=== PATIENT | male | born 1970 | race Caucasian/White ===

== ENCOUNTER 2017-07-12 13:45 | Outpatient (RCR) | payer MEDICARE, MEDICAID ==
[~2017-07-12] VITALS: Ht 147.3 cm; Wt 52.2 kg
[2017-07-12 15:22] VITALS: BP 142/97; PULSE 58; TEMP 98
== END 2017-07-13 15:39 ==
LOC: EUO 13:45
DX: N18.9 Chronic kidney disease, unspecified (principal); D63.1 Anemia in chronic kidney disease
CPT/HCPCS: J2916

== ENCOUNTER → 2017-07-12 | Emergency (ER) | payer MEDICARE, MEDICAID ==
[~2017-07-12] VITALS: Ht 147.3 cm; Wt 52.3 kg
[~2017-07-12] MED LIST: ACTOS 45MG45 MG/TAB PO; AMARYL4 MG PO; CELEXA40 MG PO; CELLCEPT 5500 MG/TAB PO; CYCLOSPORINE25 MG PO; FOLIC ACID 40400 MCG PO; JANUVIA50 MG PO; LANTUS SOLOS100 U/ML SC; LOPRESSOR 225 MG/TAB PO; NOVOLOG FLEX100 U/ML SC; PRILOSEC 20MG20 MG PO; RESTORIL 1515 MG/CAP PO; VITAMIN D 400400 IU PO; ZETIA 10MG TAB10 MG PO
[2017-07-12 17:35] VITALS: BP 125/84; PULSE 81
[2017-07-12 18:30] VITALS: TEMP 96.9
[2017-07-12 18:45] LABS: BASO # 0.1 (0.0-0.2); BASO % 0.7 % (0.0-2.0); EOS # 0.2 (0.0-0.7); EOS % 1.8 % (0-4.0); GRAN # 10.1 (1.4-6.5); GRAN % 79.7 % (42.2-75.2); HEMATOCRIT 51.9 % (42.0-52.0); HEMOGLOBIN 16.3 g/dl (13.5-18.0); LYMPH # 1.3 (1.2-3.4); LYMPH % 10.5 % (20.0-51.0); MEAN CELL VOLUME 92 fl (80.0-100.0); MEAN CORPUSCULAR HEMOGLOBIN 29 pg (27.0-31.0); MEAN CORPUSCULAR HGB CONC 31 g/dl (33.0-37.0); MEAN PLATELET VOLUME 11.5 fl (7.4-10.4); MONO # 0.9 (0.1-0.6); MONO % 6.7 % (1.7-9.3); PLATELET COUNT 256 K/mm3 (130-400); RED BLOOD COUNT 5.65 M/mm3 (4.20-5.60); REDCELL DISTRIBUTION WIDTH-CV 16.2 % (11.5-14.5); WHITE BLOOD COUNT 12.7 K/mm3 (4.8-10.8)
[2017-07-12 18:59] LABS: ADJUSTED CALCIUM 9.5 mg/dL (8.4-10.2); ALANINE AMINOTRANSFERASE 22 U/L (21-72); ALBUMIN 4.3 gm/dL (3.5-5.0); ALKALINE PHOSPHATASE 130 U/L (50-136); ANION GAP 13 mmol/L (7-16); BILIRUBIN,TOTAL 0.6 mg/dL (0.0-1.0); BLOOD UREA NITROGEN 49 mg/dL (9-20); C-REACTIVE PROTEIN 1.2 mg/dL (0.0-0.9); CALCIUM 9.7 mg/dL (8.4-10.2); CARBON DIOXIDE 19 mmol/L (22-30); CHLORIDE 104 mmol/L (98-107); GLUCOSE 263 mg/dL (74-106); LIPASE 290 U/L (23-300); SODIUM 135 mmol/L (137-145); TOTAL PROTEIN 7.4 gm/dL (6.4-8.2)
[2017-07-12 19:02] LABS: POTASSIUM 6.2 mmol/L (3.4-5.0)
[2017-07-12 19:08] LABS: B-TYPE NATRIURETIC PEPTIDE 761 pg/mL (0-125)
[2017-07-12 19:11] LABS: TROPONIN-I < 0.012 ng/mL (0.000-0.034)
[2017-07-12 21:34] LABS: CALCIUM 10.5 mg/dL (8.4-10.2); CREATININE, serum 1.9 mg/dL (0.66-1.25); POTASSIUM 5.3 mmol/L (3.4-5.0)
== END ==
LOC: COL.ER 17:32
PROVIDERS: Emergency Medicine
DX: E87.5 Hyperkalemia (principal); M54.6 Pain in thoracic spine; E11.22 Type 2 diabetes mellitus with diabetic chronic kidney disease; I12.0 Hypertensive chronic kidney disease with stage 5 chronic kidney disease or end stage renal disease; N18.6 End stage renal disease; T45.4X5A Adverse effect of iron and its compounds, initial encounter; Z99.2 Dependence on renal dialysis; Z94.0 Kidney transplant status
CPT/HCPCS: J1170; J1200; J1815; J2405; J2930; J7030

== ENCOUNTER → 2018-01-25 | Outpatient (CLI) | payer MEDICARE, MEDICAID | LOC: COL.VAS 01-22 13:15 | DX: R60.0 Localized edema (principal); R07.9 Chest pain, unspecified; I10 Essential (primary) hypertension; I27.20 Pulmonary hypertension, unspecified; I34.0 Nonrheumatic mitral (valve) insufficiency ==

== ENCOUNTER 2018-10-09 14:40 | Inpatient (IN) | payer MEDICARE, MEDICAID ==
[~2018-10-09] VITALS: Ht 147.3 cm; Wt 47.1 kg
[2018-10-09] VITALS (98 sets, daily range): BP systolic 76–92; BP diastolic 56–71; PULSE 86–95; TEMP 96; O2SAT 67–100
[~2018-10-09 14:40] MED LIST changes: +CYCLOSPORINE25 M2 PO; -CYCLOSPORINE25 MG PO; -VITAMIN D 400400 IU PO; +VITAMIND3 5000
[2018-10-09 15:09] LABS: BASO % 0.3 % (0.0-2.0); EOS % 0.2 % (0-4.0); GRAN # 9.7 (1.4-6.5); GRAN % 87.3 % (42.2-75.2); HEMATOCRIT 44.5 % (42.0-52.0); HEMOGLOBIN 14.5 g/dl (13.5-18.0); LYMPH # 0.6 (1.2-3.4); LYMPH % 5.2 % (20.0-51.0); MEAN CELL VOLUME 93 fl (80.0-100.0); MEAN CORPUSCULAR HEMOGLOBIN 30 pg (27.0-31.0); MEAN CORPUSCULAR HGB CONC 33 g/dl (33.0-37.0); MEAN PLATELET VOLUME 12.3 fl (7.4-10.4); MONO # 0.8 (0.1-0.6); MONO % 6.7 % (1.7-9.3); PLATELET COUNT 262 K/mm3 (130-400); RED BLOOD COUNT 4.81 M/mm3 (4.20-5.60); REDCELL DISTRIBUTION WIDTH-CV 13.4 % (11.5-14.5)
[2018-10-09 15:22] LABS: ALANINE AMINOTRANSFERASE 23 U/L (21-72); ALBUMIN 3.7 gm/dL (3.5-5.0); ALKALINE PHOSPHATASE 121 U/L (50-136); ANION GAP 15 mmol/L (7-16); AST,SGOT 24 U/L (15-37); BLOOD UREA NITROGEN 51 mg/dL (9-20); CALCIUM 8.8 mg/dL (8.4-10.2); CARBON DIOXIDE 18 mmol/L (22-30); CREATININE, serum 1.85 mg/dL (0.66-1.25); MAGNESIUM 1.9 mg/dL (1.6-2.3); POTASSIUM 5.5 mmol/L (3.4-5.0); SODIUM 120 mmol/L (137-145); TOTAL PROTEIN 6.2 gm/dL (6.4-8.2)
[2018-10-09 15:32] LABS: ACETONE,SERUM SMALL
[2018-10-09 15:45] LABS: CHLORIDE 87 mmol/L (98-107); GLUCOSE 1243 mg/dL (74-106)
[2018-10-09 17:40] LABS: COLLECTION METHOD CLEAN CATCH
[2018-10-09 17:49] LABS: MUCOUS Present /lpf; PH 6 (5-8); SQUAMOUS EPITHELIAL None Seen /hpf; URINE APPEARANCE Clear; URINE BACTERIA None Seen /hpf; URINE BILIRUBIN Negative (NEGATIVE); URINE BLOOD Negative (NEGATIVE); URINE COLOR Straw; URINE GLUCOSE 3+ (NEGATIVE); URINE KETONE Trace (NEGATIVE); URINE LEUKOCYTE ESTERASE Negative (NEGATIVE); URINE NITRATE Negative (NEGATIVE); URINE PROTEIN(semi-quant) Negative (NEGATIVE); URINE RBC None Seen /hpf; URINE UROBILINOGEN Negative (NEGATIVE)
[2018-10-09 18:00] LABS: CALCIUM 8.8 mg/dL (8.4-10.2); CREATININE, serum 1.87 mg/dL (0.66-1.25); PHOSPHOROUS 1.6 mg/dL (2.5-4.5); POTASSIUM 3.8 mmol/L (3.4-5.0)
[2018-10-09] MEDS ORDERED: PRINIVIL20 MG PO (19:16)
[2018-10-09] MEDS ORDERED: RYTARY1 CE2 PO (19:16)
[2018-10-09] MEDS ORDERED: REQUIP 1MG T1 MG/TAB PO (19:17)
[2018-10-09] MEDS ORDERED: LEVOXYL0.025 MG PO (19:18)
[2018-10-09] MEDS ORDERED: BASAGLAR K100 UNIT/1 SQ (19:18)
[2018-10-09] MEDS ORDERED: ARICEPT 5MG PO (19:19)
[2018-10-09] MEDS ORDERED: ZOLOFT 25MG25 MG PO (19:19)
[2018-10-09 19:20] LABS: GASTROCCULT NEGATIVE; pH GASTRIC CONTENTS 3
[2018-10-09] MEDS ORDERED: TRULICITY0.75 MG/0. SQ (19:20)
[2018-10-09 20:06] LABS: ARTERIAL BLD GAS O2 SATURATION 97.9 % (92-100); ARTERIAL BLD GAS TCO2 CT 13.3; ARTERIAL BLOOD GAS BASE EXCESS -11.3 (-2-2); ARTERIAL BLOOD GAS HCO3 12.6 meq/L (22-26); ARTERIAL BLOOD GAS PCO2 24.1 mmHg (35-45); ARTERIAL BLOOD GAS pH 7.34 (7.35-7.45)
[2018-10-09 20:07] LABS: ARTERIAL BLOOD GAS PO2 121.5 mmHg (80-100)
[2018-10-09 20:09] LABS: CALCIUM 8.1 mg/dL (8.4-10.2); CREATININE, serum 1.86 mg/dL (0.66-1.25); MAGNESIUM 1.9 mg/dL (1.6-2.3); POTASSIUM 3.3 mmol/L (3.4-5.0)
[2018-10-09 23:20] LABS: CREATININE, serum 1.7 mg/dL (0.66-1.25); POTASSIUM 3.9 mmol/L (3.4-5.0)
[2018-10-10] VITALS (431 sets, daily range): BP systolic 94–127; BP diastolic 68–96; PULSE 72–102; TEMP 97.8–98.7; O2SAT 72–100
[2018-10-10 01:18] LABS: CALCIUM 7.4 mg/dL (8.4-10.2); CREATININE, serum 1.57 mg/dL (0.66-1.25); POTASSIUM 4.4 mmol/L (3.4-5.0)
[2018-10-10 03:02] LABS: CALCIUM 7.4 mg/dL (8.4-10.2); CREATININE, serum 1.59 mg/dL (0.66-1.25); POTASSIUM 4.6 mmol/L (3.4-5.0)
[2018-10-10 04:55] LABS: CALCIUM 7.4 mg/dL (8.4-10.2); CREATININE, serum 1.71 mg/dL (0.66-1.25); MAGNESIUM 2.2 mg/dL (1.6-2.3); POTASSIUM 4.8 mmol/L (3.4-5.0)
[2018-10-10 07:20] LABS: CALCIUM 7.9 mg/dL (8.4-10.2); CREATININE, serum 1.98 mg/dL (0.66-1.25)
[2018-10-10 08:40] LABS: BASO % 0.2 % (0.0-2.0); EOS % 0.1 % (0-4.0); GRAN # 13.1 (1.4-6.5); HEMOGLOBIN 12.7 g/dl (13.5-18.0); LYMPH # 0.8 (1.2-3.4); LYMPH % 4.9 % (20.0-51.0); MEAN CORPUSCULAR HEMOGLOBIN 30 pg (27.0-31.0); MEAN CORPUSCULAR HGB CONC 35 g/dl (33.0-37.0); MEAN PLATELET VOLUME 12.3 fl (7.4-10.4); MONO # 1.3 (0.1-0.6); MONO % 8.2 % (1.7-9.3); PLATELET COUNT 239 K/mm3 (130-400); RED BLOOD COUNT 4.21 M/mm3 (4.20-5.60)
[2018-10-10 08:42] LABS: HEMATOCRIT 36.7 % (42.0-52.0); MEAN CELL VOLUME 87 fl (80.0-100.0)
[2018-10-10 09:28] LABS: CALCIUM 7.9 mg/dL (8.4-10.2); CREATININE, serum 1.98 mg/dL (0.66-1.25); POTASSIUM 4.1 mmol/L (3.4-5.0)
[2018-10-10 11:37] LABS: CALCIUM 7.7 mg/dL (8.4-10.2); CREATININE, serum 1.98 mg/dL (0.66-1.25); POTASSIUM 4.4 mmol/L (3.4-5.0)
[2018-10-10 21:28] LABS: CALCIUM 7.5 mg/dL (8.4-10.2); CREATININE, serum 1.98 mg/dL (0.66-1.25); POTASSIUM 4.5 mmol/L (3.4-5.0)
[2018-10-11] VITALS (719 sets, daily range): BP systolic 90–149; BP diastolic 51–104; PULSE 70–97; TEMP 98.1–98.7; O2SAT 84–100
[2018-10-11 05:41] LABS: BASO % 0.2 % (0.0-2.0); EOS # 0.1 (0.0-0.7); EOS % 0.8 % (0-4.0); GRAN # 8.1 (1.4-6.5); GRAN % 78.8 % (42.2-75.2); LYMPH # 1.1 (1.2-3.4); LYMPH % 10.9 % (20.0-51.0); MEAN CELL VOLUME 91 fl (80.0-100.0); MEAN CORPUSCULAR HGB CONC 33 g/dl (33.0-37.0); MEAN PLATELET VOLUME 11.2 fl (7.4-10.4); MONO # 0.9 (0.1-0.6); MONO % 8.9 % (1.7-9.3); PLATELET COUNT 172 K/mm3 (130-400); RED BLOOD COUNT 3.52 M/mm3 (4.20-5.60); REDCELL DISTRIBUTION WIDTH-CV 13.5 % (11.5-14.5)
[2018-10-11 05:42] LABS: HEMATOCRIT 32.1 % (42.0-52.0); HEMOGLOBIN 10.7 g/dl (13.5-18.0); MEAN CORPUSCULAR HEMOGLOBIN 30 pg (27.0-31.0)
[2018-10-11 05:53] LABS: CALCIUM 7.4 mg/dL (8.4-10.2); CREATININE, serum 1.51 mg/dL (0.66-1.25)
[2018-10-12] VITALS (515 sets, daily range): BP systolic 138–156; BP diastolic 100–106; PULSE 78–88; TEMP 98.1; O2SAT 86–100
[2018-10-12 06:10] LABS: BASO % 0.3 % (0.0-2.0); EOS # 0.1 (0.0-0.7); EOS % 1.9 % (0-4.0); GRAN # 4.8 (1.4-6.5); GRAN % 69.2 % (42.2-75.2); HEMOGLOBIN 11.1 g/dl (13.5-18.0); LYMPH # 1.2 (1.2-3.4); LYMPH % 17.2 % (20.0-51.0); MEAN CELL VOLUME 92 fl (80.0-100.0); MEAN CORPUSCULAR HEMOGLOBIN 31 pg (27.0-31.0); MEAN CORPUSCULAR HGB CONC 33 g/dl (33.0-37.0); MEAN PLATELET VOLUME 11.4 fl (7.4-10.4); MONO # 0.8 (0.1-0.6); PLATELET COUNT 151 K/mm3 (130-400); RED BLOOD COUNT 3.63 M/mm3 (4.20-5.60); REDCELL DISTRIBUTION WIDTH-CV 13.6 % (11.5-14.5)
[2018-10-12 06:18] LABS: HEMATOCRIT 33.4 % (42.0-52.0)
[2018-10-12 06:27] LABS: CALCIUM 7.4 mg/dL (8.4-10.2); CREATININE, serum 1.1 mg/dL (0.66-1.25); POTASSIUM 3.7 mmol/L (3.4-5.0)
[2018-10-12] MEDS ORDERED: TOPROL XL 25MG25 MG PO (13:16)
[2018-10-12] MEDS ORDERED: PHOSPHA 250 NEU1 TAB PO (13:17)
[2018-10-12] MEDS ORDERED: BASAGLAR K100 UNIT/1 SQ (13:17)
[2018-10-12] MEDS ORDERED: NOVOLOG 100U100 U/M1 SQ (13:21)
== END 2018-10-12 14:25 | disposition swing bed (61) | DRG 638 ==
LOC: COL.ER 14:40 → ICU 15:59
PROVIDERS: Emergency Medicine; Hospitalist; Internal Medicine; Physician Assistant
PROC: 02HV33Z Insertion of Infusion Device into Superior Vena Cava, Percutaneous Approach (ICD-10-PCS; principal; 2018-10-11)
DX: E11.00 Type 2 diabetes mellitus with hyperosmolarity without nonketotic hyperglycemic-hyperosmolar coma (NKHHC) (principal); Z94.0 Kidney transplant status; E87.1 Hypo-osmolality and hyponatremia; E87.2 Acidosis; N17.9 Acute kidney failure, unspecified; N13.30 Unspecified hydronephrosis; Z79.4 Long term (current) use of insulin; Z91.14 Patient's other noncompliance with medication regimen; G20 Parkinson's disease; Z87.891 Personal history of nicotine dependence; I10 Essential (primary) hypertension; F03.90 Unspecified dementia, unspecified severity, without behavioral disturbance, psychotic disturbance, mood disturbance, and anxiety; F32.9 Major depressive disorder, single episode, unspecified; E83.39 Other disorders of phosphorus metabolism; R33.9 Retention of urine, unspecified; T38.3X1A Poisoning by insulin and oral hypoglycemic [antidiabetic] drugs, accidental (unintentional), initial encounter; Y92.238 Other place in hospital as the place of occurrence of the external cause; I95.9 Hypotension, unspecified; E87.6 Hypokalemia; E83.42 Hypomagnesemia
CPT/HCPCS: 99222-AI; 99232-AI; 99233-AI; 99239; J1644; J1815; J2405; J3475; J3480; J7030; J7070; J7515; J7517

== ENCOUNTER → 2020-11-26 | Outpatient (CLI) | payer MEDICARE, MEDICAID ==
[~2020-11-26] MED LIST changes: +ARICEPT 5MG PO; +BASAGLAR K100 UNIT/1 SQ; +LEVOXYL0.025 MG PO; +NOVOLOG 100U100 U/M1 SQ; +PHOSPHA 250 NEU1 TAB PO; +PRINIVIL20 MG PO; +REQUIP 1MG T1 MG/TAB PO; +RYTARY1 CE2 PO; +TOPROL XL 25MG25 MG PO; +TRULICITY0.75 MG/0. SQ; +ZOLOFT 25MG25 MG PO
[2020-11-26 09:39] LABS: ALBUMIN 4.1 gm/dL (3.5-5.0); BASO # 0.1 (0.0-0.2); BASO % 1.5 % (0.0-2.0); BILIRUBIN,TOTAL 0.4 mg/dL (0.0-1.0); CALCIUM 9.8 mg/dL (8.4-10.2); CHOLESTEROL RISK RATIO 2.8; CREATININE, serum 1.68 (0.66-1.25); EOS # 0.6 (0.0-0.7); EOS % 8.7 % (0-4.0); GRAN # 4.2 (1.4-6.5); GRAN % 61.5 % (42.2-75.2); LYMPH # 1.2 (1.2-3.4); LYMPH % 17.9 % (20.0-51.0); MEAN CELL VOLUME 79 fl (80.0-100.0); MEAN CORPUSCULAR HGB CONC 28 g/dl (33.0-37.0); MEAN PLATELET VOLUME 11.1 fl (7.4-10.4); MONO # 0.7 (0.1-0.6); MONO % 10.1 % (1.7-9.3); PLATELET COUNT 426 K/mm3 (130-400); RED BLOOD COUNT 3.79 M/mm3 (4.20-5.60); REDCELL DISTRIBUTION WIDTH-CV 17.2 % (11.5-14.5); TOTAL PROTEIN 6.7 gm/dL (6.4-8.2); URIC ACID 7.3 mg/dL (3.5-8.5)
[2020-11-26 09:41] LABS: HEMOGLOBIN 8.5 g/dl (13.5-18.0); MEAN CORPUSCULAR HEMOGLOBIN 22 pg (27.0-31.0)
== END ==
LOC: ZCOL.LAB 08:49
PROVIDERS: Internal Medicine Nephrology
DX: E11.21 Type 2 diabetes mellitus with diabetic nephropathy (principal); Z94.0 Kidney transplant status

== ENCOUNTER → 2020-12-10 | Outpatient (CLI) | payer MEDICARE, MEDICAID | LOC: ZCOL.LAB 09:11 | DX: E11.21 Type 2 diabetes mellitus with diabetic nephropathy (principal) ==

== ENCOUNTER 2021-02-25 16:41 | Inpatient (IN) | payer MEDICARE, MEDICAID ==
[~2021-02-25] VITALS: Ht 147.3 cm; Wt 63.6 kg
[2021-02-25 17:20] LABS: MEAN CELL VOLUME 79 fl (80.0-100.0); MEAN CORPUSCULAR HGB CONC 29 g/dl (33.0-37.0); MEAN PLATELET VOLUME 10.3 fl (7.4-10.4); PLATELET COUNT 332 K/mm3 (130-400); REDCELL DISTRIBUTION WIDTH-CV 16.2 % (11.5-14.5)
[2021-02-25 17:23] LABS: HEMOGLOBIN 8.6 g/dl (13.5-18.0); MEAN CORPUSCULAR HEMOGLOBIN 23 pg (27.0-31.0)
[2021-02-25 17:38] LABS: ALANINE AMINOTRANSFERASE 7 U/L (4-49); ALBUMIN 4.3 gm/dL (3.5-5.0); ALKALINE PHOSPHATASE 130 U/L (50-136); ANION GAP 12 mmol/L (7-16); AST,SGOT 16 U/L (15-37); BILIRUBIN,TOTAL 0.2 mg/dL (0.0-1.0); BLOOD UREA NITROGEN 51 mg/dL (9-20); CALCIUM 9.4 mg/dL (8.4-10.2); CARBON DIOXIDE 17 mmol/L (22-30); CHLORIDE 103 mmol/L (98-107); CREATININE, serum 1.62 (0.66-1.25); MAGNESIUM 2.1 mg/dL (1.6-2.3); SODIUM 133 mmol/L (137-145); TOTAL PROTEIN 7.2 gm/dL (6.4-8.2)
[2021-02-25 17:43] LABS: GLUCOSE 581 mg/dL (74-106)
[2021-02-25 17:44] LABS: POTASSIUM 6.9 mmol/L (3.4-5.0)
[2021-02-25 17:50] LABS: TROPONIN-I < 0.012 ng/mL (0.000-0.035)
[2021-02-25 18:54] LABS: EOSINOPHIL 1 % (0-4); LYMPHOCYTE 2 % (20.0-51.0); MICROCYTOSIS 1+; NEUTROPHILS 93 % (42.0-75.2)
[2021-02-25] MEDS ORDERED: TOPROL XL 50MG50 MG PO (21:01)
[2021-02-25] MEDS ORDERED: ASPIRIN E.C. 8181 MG PO (21:02)
[2021-02-25] MEDS ORDERED: CYCLOSPORINE25 M2 PO (21:02)
[2021-02-25] MEDS ORDERED: ARICEPT10 MG PO (21:04)
[2021-02-25] MEDS ORDERED: FLOMAX 0.40.4 MG/CAP PO (21:04)
[2021-02-25] MEDS ORDERED: ZOLOFT 100MG100 MG PO (21:05)
[2021-02-25] MEDS ORDERED: LASIX 20MG TABL20 MG PO (21:05)
[2021-02-25] MEDS ORDERED: RYTARY1 CE3 PO (21:06)
[2021-02-25 21:18] VITALS: BP 112/74; PULSE 103; TEMP 98.1
[2021-02-25 21:33] LABS: CALCIUM 9.7 mg/dL (8.4-10.2); CREATININE, serum 1.47 (0.66-1.25); POTASSIUM 5.6 mmol/L (3.4-5.0)
[2021-02-25 22:46] VITALS: BP 110/69; PULSE 79; TEMP 97.9
[2021-02-26] MEDS ORDERED: BASAGLAR K100 UNIT/1 SQ (00:23)
[2021-02-26] MEDS ORDERED: LIQUIFILM TEARS15 ML OU (00:25)
[2021-02-26] MEDS ORDERED: TYLENOL 500MG500 MG PO (00:27)
[2021-02-26] MEDS ORDERED: ANTACID500 M1 PO (00:32)
[2021-02-26] MEDS ORDERED: ANTI-DIARRHEAL2 MG PO (00:34)
--- NOTE | 2021-02-26 01:08 | NUR ---
Patient arrived to surgcal floor around 2119. Patient has police escort present. Alert and disoriented. Patient hard of hearing, but able to understand enough after a few times of repeating questions. Patient is cooperative, and taking medications per orders. Denies having pain and discomfort. Peripheral IV to left forearm with fluids running per orders. BS when arriving to unit was 115. Patient did eat, and BS around midnight was 337. Given sliding scale insulin per orders. Denies SOB and dyspnea. LS CTA. Respirations even and unlabored. HRR. Telemetry in place. Capillary refill less than 3 seconds. Non-tenting skin turgor. BSAx4. Abdomen soft and non-tender. No edema. Patient voices no questions, needs, or concerns at this time. Patient given Kayexelate per orders. Has gone to the bathroom twice since, but no BM at this time. No urine output for UA at this time. Does state that he does not make much urine anymore. Resting in bed with call light within reach.
[2021-02-26 02:32] LABS: CREATININE, serum 1.42 (0.66-1.25); POTASSIUM 4.6 mmol/L (3.4-5.0)
[2021-02-26 04:23] VITALS: BP 125/73; PULSE 87; TEMP 98.1
--- NOTE | 2021-02-26 06:08 | NUR ---
Patient's blood sugar 29. Hypoglycemic protocol implemented. Given D50W per orders.
--- NOTE | 2021-02-26 06:21 | NUR ---
Patient's blood sugar is now 208 fingerstick. Police escort remains in room. Patient denies having pain and discomfort.
[2021-02-26 07:12] LABS: MEAN CELL VOLUME 80 fl (80.0-100.0); MEAN CORPUSCULAR HGB CONC 29 g/dl (33.0-37.0); PLATELET COUNT 294 K/mm3 (130-400); RED BLOOD COUNT 3.17 M/mm3 (4.20-5.60); REDCELL DISTRIBUTION WIDTH-CV 16.1 % (11.5-14.5)
[2021-02-26 07:15] LABS: HEMATOCRIT 25.3 % (42.0-52.0); HEMOGLOBIN 7.3 g/dl (13.5-18.0); MEAN CORPUSCULAR HEMOGLOBIN 23 pg (27.0-31.0)
[2021-02-26 07:18] LABS: CALCIUM 8.6 mg/dL (8.4-10.2); CREATININE, serum 1.25 (0.66-1.25); POTASSIUM 4.6 mmol/L (3.4-5.0)
--- NOTE | 2021-02-26 07:50 | NUR ---
Lab called to report critical glucose of 31. Immediate finger stick glucose resulted in 127. Called lab to advise of discrepency. VS and telemetry are WNL. Patient continues to refuse to rouse, but snack offered and left at bedside, awaiting lab to advise or recheck.
[2021-02-26 08:24] VITALS: BP 121/83; PULSE 91; TEMP 98.4
--- NOTE | 2021-02-26 09:10 | NUR ---
Glucose recheck was consistant with earlier capillary check. Patient was up to bedside commode with student and is alert and oriented. Patient was able to take PO medications and is currently awaiting breakfast. VS and telemetry remain WNL.
--- NOTE | 2021-02-26 09:38 | NUR ---
Initial visit; Patient thanked Smoke Tester for looking in on him and offering God's blessings.
[2021-02-26 10:13] LABS: CALCIUM 8.6 mg/dL (8.4-10.2); CREATININE, serum 1.4 (0.66-1.25); POTASSIUM 4.7 mmol/L (3.4-5.0)
--- NOTE | 2021-02-26 12:50 | NUR ---
Discharge teaching completed by charge nurse. INT removed by student nurse. Patient confirmed all belongings were gathered, patient transferred to wheelchair and escorted out by [facility] officers.
--- NOTE | 2021-02-26 16:33 | NUR ---
Patient is an inmate at [facility] and will return there today upon discharge. SW was contacted by SUMEET Crow-Stave Log Ripsaw Operator at [facility]. Mignon advised patient sees Dr. Katerine Bhatti for primary care. Mignon advised that patient was living at [facility] but was kicked out after the incident he was arrested for. Mignon advised she has worked extensively with this patient as he has poor medical follow through. NO needs at this time.
== END 2021-02-26 12:50 | DRG 638 ==
LOC: COL.ER 16:41 → SURG 18:37
PROVIDERS: Emergency Medicine; Physician Assistant; Student in an Organized Health Care Education/Training Program; ADMIT Internal Medicine
DX: E11.65 Type 2 diabetes mellitus with hyperglycemia (principal); Z94.0 Kidney transplant status; E87.1 Hypo-osmolality and hyponatremia; E87.5 Hyperkalemia; E11.22 Type 2 diabetes mellitus with diabetic chronic kidney disease; N18.9 Chronic kidney disease, unspecified; I12.9 Hypertensive chronic kidney disease with stage 1 through stage 4 chronic kidney disease, or unspecified chronic kidney disease; G20 Parkinson's disease; F17.210 Nicotine dependence, cigarettes, uncomplicated; D63.1 Anemia in chronic kidney disease; D72.829 Elevated white blood cell count, unspecified; F03.90 Unspecified dementia, unspecified severity, without behavioral disturbance, psychotic disturbance, mood disturbance, and anxiety; E03.9 Hypothyroidism, unspecified; K21.9 Gastro-esophageal reflux disease without esophagitis; F32.9 Major depressive disorder, single episode, unspecified; N40.0 Benign prostatic hyperplasia without lower urinary tract symptoms; Z91.14 Patient's other noncompliance with medication regimen; Z79.82 Long term (current) use of aspirin; Z79.4 Long term (current) use of insulin
CPT/HCPCS: 99222-AI; 99223-AI; 99239; J0610; J1644; J1815; J7030; J7515; J7517

== ENCOUNTER 2021-03-27 08:10 | Inpatient (IN) | payer OTHER ==
[~2021-03-27] VITALS: Ht 152.4 cm; Wt 40.8 kg
[2021-03-27] VITALS (411 sets, daily range): BP systolic 91–135; BP diastolic 52–89; PULSE 75–103; TEMP 97.4–98; O2SAT 71–100
[~2021-03-27 08:10] MED LIST changes: +ANTACID500 M1 PO; +ANTI-DIARRHEAL2 MG PO; +ARICEPT10 MG PO; +ASPIRIN E.C. 8181 MG PO; +FLOMAX 0.40.4 MG/CAP PO; +LASIX 20MG TABL20 MG PO; +LIQUIFILM TEARS15 ML OU; +RYTARY1 CE3 PO; +TOPROL XL 50MG50 MG PO; +TYLENOL 500MG500 MG PO; +ZOLOFT 100MG100 MG PO
[2021-03-27 08:53] LABS: MEAN CELL VOLUME 85 fl (80.0-100.0); MEAN CORPUSCULAR HGB CONC 28 g/dl (33.0-37.0); MEAN PLATELET VOLUME 10.9 fl (7.4-10.4); PLATELET COUNT 331 K/mm3 (130-400); RED BLOOD COUNT 2.23 M/mm3 (4.20-5.60); REDCELL DISTRIBUTION WIDTH-CV 18.2 % (11.5-14.5)
[2021-03-27 09:01] LABS: HEMOGLOBIN 5.4 g/dl (13.5-18.0); MEAN CORPUSCULAR HEMOGLOBIN 24 pg (27.0-31.0)
[2021-03-27 09:03] LABS: ALBUMIN 3.3 gm/dL (3.5-5.0); BILIRUBIN,TOTAL 0.8 mg/dL (0.0-1.0); CALCIUM 8.9 mg/dL (8.4-10.2); CREATININE, serum 1.37 (0.66-1.25); TOTAL PROTEIN 5.6 gm/dL (6.4-8.2)
[2021-03-27 09:12] LABS: POTASSIUM 6.7 mmol/L (3.4-5.0)
[2021-03-27 09:53] LABS: ANISOCYTOSIS 3+; HYPERSEGMENTED POLYS PRESENT; HYPOCHROMIA 4+; LYMPHOCYTE 2 % (20.0-51.0); NEUTROPHILS 96 % (42.0-75.2); OVALOCYTES 1+; POIKILOCYTOSIS 1+
[2021-03-27 09:54] LABS: PLATELET ESTIMATE NORMAL (NORMAL)
--- NOTE | 2021-03-27 10:20 | NUR ---
PT ARRIVES TO ICU 1 VIA STRETCHER ON 3L VIA NC. REPORT RECEIVED FROM CHELSEA IN ER AT THIS TIME. PT DOES APPEAR TO BE AMS AND UNABLE TO ANSWER QUESTIONS BUT DOES OPEN EYES OCCASSIONALLY UPON REQUEST. CORRECTION STAFF MEMBER ACCOMPANY PT. PT PLACED ON BEDSIDE CONTINUOUS MONITOR. VSS.
[2021-03-27 10:41] LABS: COLLECTION METHOD CLEAN CATCH
[2021-03-27 10:50] LABS: PH 8 (5-8); SQUAMOUS EPITHELIAL None Seen /hpf; URINE APPEARANCE Clear; URINE BACTERIA None Seen /hpf; URINE BILIRUBIN Negative (NEGATIVE); URINE BLOOD Negative (NEGATIVE); URINE COLOR Yellow; URINE GLUCOSE 3+ (NEGATIVE); URINE KETONE Trace (NEGATIVE); URINE LEUKOCYTE ESTERASE Negative (NEGATIVE); URINE NITRATE Negative (NEGATIVE); URINE PROTEIN(semi-quant) Negative (NEGATIVE); URINE RBC 0-2 /hpf; URINE UROBILINOGEN Negative (NEGATIVE)
[2021-03-27 10:52] LABS: PROTHROMBIN TIME 11.6 SECONDS (9.7-12.8)
[2021-03-27 10:54] LABS: TRICYCLIC ANTIDEPRESS URINE NEGATIVE
[2021-03-27 10:56] LABS: MAGNESIUM 1.8 mg/dL (1.6-2.3); PHOSPHOROUS 3.6 mg/dL (2.5-4.5)
[2021-03-27 10:58] LABS: ARTERIAL BLD GAS O2 SATURATION 96.3 % (92-100); ARTERIAL BLD GAS TCO2 CT 20.7; ARTERIAL BLOOD GAS BASE EXCESS -4.1 (-2-2); ARTERIAL BLOOD GAS HCO3 19.8 meq/L (22-26); ARTERIAL BLOOD GAS PCO2 29.6 mmHg (35-45); ARTERIAL BLOOD GAS PO2 90.7 mmHg (80-100); ARTERIAL BLOOD GAS pH 7.44 (7.35-7.45)
[2021-03-27 11:08] LABS: TROPONIN-I 0.016 ng/mL (0.000-0.035)
[2021-03-27 11:09] LABS: RETIC # 0.04 M/mm3 (0.02-0.16); RETIC % 1.8 % (0.5-3.52)
[2021-03-27 11:12] LABS: IRON,SERUM 43 ug/dL (35-150)
[2021-03-27 11:21] LABS: TOTAL IRON BINDING CAPACITY 331 ug/dL (261-462)
[2021-03-27 11:53] LABS: CALCIUM 7.3 mg/dL (8.4-10.2); CREATININE, serum 1.16 (0.66-1.25); POTASSIUM 5.4 mmol/L (3.4-5.0)
--- NOTE | 2021-03-27 12:05 | NUR ---
NOTIFIED DR MONGE THAT PT THREW UP DARK EMESIS. NEW ORDERS RECEIVED.
--- NOTE | 2021-03-27 13:14 | NUR ---
INOFMRED DR MONGE THAT PT HAD A WITNESSED SEIZURE LIKE ACTIVITY WHERE PT'S BACK WAS ARCHED AND EYES WERE ROLLED UP, HR DROPPED FROM 120 TO 80 AND SBP WAS 79. PRN ATIVAN ORDERS AND NEURO CONSULT ORDERED.
[2021-03-27 14:32] LABS: ANION GAP 13 mmol/L (7-16); BLOOD UREA NITROGEN 90 mg/dL (9-20); CALCIUM 8.1 mg/dL (8.4-10.2); CARBON DIOXIDE 15 mmol/L (22-30); CHLORIDE 114 mmol/L (98-107); CREATININE, serum 1.13 (0.66-1.25); GLUCOSE 286 mg/dL (74-106); POTASSIUM 4.8 mmol/L (3.4-5.0); SODIUM 142 mmol/L (137-145)
[2021-03-27 14:48] LABS: PROLACTIN < 1.4 ng/mL (3.7-17.9)
--- NOTE | 2021-03-27 16:02 | NUR ---
Tableau Developer was contacted by Hospitalist who needs to find out if patient has Advance Directives or legal next of kin. Hospitalist advised patient is not oriented at this time. Patient was brought in from [facility] where he has been incarcerated. SW attempted to contact a phone number for patient's sister, Elvis Baez however the phone number was disconnected. SW contacted patient's friend, Yanely (ph#[phone]) who advised she has not been contact with patient in a short while. Yanely advised patient has never been , does not have children, and his parents are . Yanely reports that patient has two siblings, Elvis and Cory. Yanely does not have contact information for them. SW contacted [facility] as patient previously lived there before being evicted. SW was advised that there was no one in the building that could look up information in his file. SW also contacted [facility] as patient did a short swing bed stay in 2018. [facility] did not have any Advance Directives for patient. SW contacted the [facility] and the number they have for patient's sister, Elvis is disconnected. They did provide Elvis's address [address]. SW contacted the [place] [employer] to have an office make contact with Elvis. SW received a phone call from patient's sister, Elvis (ph#[phone]) who confirmed patient is not , has no children, and his parents are . Elvis states patient has one other sibling, Cory Simpson (ph#[phone]) who lives in [place]. SW explained to Elvis that she and Cory are patient's legal next of kin and would be decision makers if patient was unable to make his own health care decisions. Elvis verbalized understanding. ELIJAH followed up with patient's RN, Melissa to provide next of kin information. Discharge Plan: Unknown at this time. Patient is currently incarcerated at [facility].
--- NOTE | 2021-03-27 16:31 | NUR ---
DR MARTINEZ AT BEDSIDE FOR ASSESSMENT.
[2021-03-27 16:38] LABS: CALCIUM 8.2 mg/dL (8.4-10.2); CREATININE, serum 1.14 (0.66-1.25); POTASSIUM 4.6 mmol/L (3.4-5.0)
[2021-03-27] MEDS ORDERED: IMODIUM 2MG CAPS2 MG PO (17:04)
--- NOTE | 2021-03-27 17:09 | NUR ---
NOTIFIED DR VILLA OF FSBS AND ASKED ABOUT POC FOR BLODD SUGARS AND INSULIN GTT. PHSYCIAIN STATES ONCE FSBS IS BETWEEN 140-180, SWITCH OFF INSULIN GTT AND START Q4HR FSBS WITH LOW DOSE SLIDING SCALE. SEE MAR.
[2021-03-27] MEDS ORDERED: HALDOL .5M0.5 MG/TAB PO (17:17)
--- NOTE | 2021-03-27 18:14 | NUR ---
NOTIFIED TRISTA SHELDON ABOUT NURSING BEDSIDE SWALLOW WITH PILL AND PT SWALLOWED WITHOUT DIFFICULTIES. DIET ORDER PLACED.
[2021-03-27 18:42] LABS: CALCIUM 8.2 mg/dL (8.4-10.2); CREATININE, serum 1.19 (0.66-1.25); POTASSIUM 4.8 mmol/L (3.4-5.0)
--- NOTE | 2021-03-27 19:26 | NUR ---
RECEIVED REPORT FROM SUMEET KELLEY. PATIENT RESTING IN BED AND WOKE UP TO EAT AT THIS TIME. VSS. CALL LIGHT WITHIN REACH. CUSTODY AT BEDSIDE. FLUIDS RUNNING PER REPORT.
[2021-03-27 20:32] LABS: CALCIUM 7.7 mg/dL (8.4-10.2); CREATININE, serum 1.17 (0.66-1.25); POTASSIUM 4.3 mmol/L (3.4-5.0)
[2021-03-27 20:40] LABS: HEMATOCRIT 24.8 % (42.0-52.0); HEMOGLOBIN 7.8 g/dl (13.5-18.0)
[2021-03-27 23:21] LABS: CALCIUM 7.4 mg/dL (8.4-10.2); CREATININE, serum 1.18 (0.66-1.25); POTASSIUM 4.2 mmol/L (3.4-5.0)
--- NOTE | 2021-03-27 23:25 | NUR ---
LAB NOTIFIED THIS NURSE OF CRITICAL CO2 VALUE. TOLD LAB THAT WE WILL BE DRAWING VBGs SOON.
[2021-03-28] VITALS (647 sets, daily range): BP systolic 101–136; BP diastolic 67–88; PULSE 79–113; TEMP 97.4–98.6; O2SAT 74–100
--- NOTE | 2021-03-28 00:02 | NUR ---
VBGs JUST RESULTED WITH NONCRITICAL VALUE FOR CO2
[2021-03-28 05:27] LABS: BASO # 0.1 (0.0-0.2); BASO % 0.3 % (0.0-2.0); GRAN % 89.5 % (42.2-75.2); LYMPH # 0.5 (1.2-3.4); LYMPH % 2.9 % (20.0-51.0); MEAN CELL VOLUME 86 fl (80.0-100.0); MEAN CORPUSCULAR HGB CONC 32 g/dl (33.0-37.0); MEAN PLATELET VOLUME 10.5 fl (7.4-10.4); MONO % 6.5 % (1.7-9.3); RED BLOOD COUNT 2.53 M/mm3 (4.20-5.60); REDCELL DISTRIBUTION WIDTH-CV 16.6 % (11.5-14.5)
[2021-03-28 05:30] LABS: ARTERIAL BLD GAS O2 SATURATION 95.3 % (92-100); ARTERIAL BLD GAS TCO2 CT 15.2; ARTERIAL BLOOD GAS BASE EXCESS -9.9 (-2-2); ARTERIAL BLOOD GAS HCO3 14.4 meq/L (22-26); ARTERIAL BLOOD GAS PCO2 26.1 mmHg (35-45); ARTERIAL BLOOD GAS PO2 80.5 mmHg (80-100); ARTERIAL BLOOD GAS pH 7.36 (7.35-7.45)
[2021-03-28 05:49] LABS: HEMATOCRIT 21.7 % (42.0-52.0); MEAN CORPUSCULAR HEMOGLOBIN 28 pg (27.0-31.0); PLATELET COUNT 197 K/mm3 (130-400)
[2021-03-28 06:05] LABS: PROTHROMBIN TIME 10.8 SECONDS (9.7-12.8)
--- NOTE | 2021-03-28 07:00 | NUR ---
RECEIVED REPORT FROM SUMEET FARNSWORTH. PT SLEEPING ON RA. VSS. CALL LIGHT WITHIN REACH. POLICE STAFF REMAINS AT BEDSIDE.
--- NOTE | 2021-03-28 07:25 | NUR ---
DR DURÁN AT BEDSIDE FOR ASSESSMENT. DISCUSSED POSSIBLE EGD LATER TODAY OR TOMORROW MORNING. PHYSICIAN STATES IF NEXT H&H DRAW IS LESS THAN 7 THEN TO TRANFUSE 1 UNIT PRBC. PHYSICIAN STATES SHE WILL WAIT TILL PT IS MORE AWAKE TO ANSWER QUESTIONS TO GET CONSENT FOR EGD.
[2021-03-28 08:19] LABS: HEMATOCRIT 21.4 % (42.0-52.0); HEMOGLOBIN 6.8 g/dl (13.5-18.0)
--- NOTE | 2021-03-28 09:25 | NUR ---
DR MONGE AT BEDSIDE FOR ASSESSMENT. DISCUSSED CHANGES AND POC FOR EGD TOMORROW WITH DR DURÁN.
[2021-03-28] MEDS ORDERED: SENEXON-S 50-81 EACH PO (13:05)
[2021-03-28] MEDS ORDERED: FERROUS SU325 MG/TAB PO (13:06)
--- NOTE | 2021-03-28 13:47 | NUR ---
Sister Scott Baez Called for an update on patient who is intubated. Transfered to ICU Charge for update.
[2021-03-28 20:05] LABS: HEMATOCRIT 25.6 % (42.0-52.0); HEMOGLOBIN 8.2 g/dl (13.5-18.0)
--- NOTE | 2021-03-28 21:55 | NUR ---
Assessment complete and changed. Denies needs at this time. Call light in reach.
[2021-03-29] VITALS (299 sets, daily range): BP systolic 130–154; BP diastolic 90–97; PULSE 82–111; TEMP 97.5–99.7; O2SAT 76–100
--- NOTE | 2021-03-29 00:45 | NUR ---
Patient resting in bed. Denies needs. Call light in reach.
[2021-03-29 06:19] LABS: BASO % 0.2 % (0.0-2.0); EOS % 0.1 % (0-4.0); GRAN # 10.1 (1.4-6.5); GRAN % 83.2 % (42.2-75.2); LYMPH # 0.7 (1.2-3.4); LYMPH % 5.8 % (20.0-51.0); MEAN CELL VOLUME 85 fl (80.0-100.0); MEAN CORPUSCULAR HGB CONC 33 g/dl (33.0-37.0); MEAN PLATELET VOLUME 10.4 fl (7.4-10.4); MONO # 1.1 (0.1-0.6); MONO % 9.3 % (1.7-9.3); PLATELET COUNT 201 K/mm3 (130-400); RED BLOOD COUNT 2.87 M/mm3 (4.20-5.60); REDCELL DISTRIBUTION WIDTH-CV 17.3 % (11.5-14.5)
[2021-03-29 06:35] LABS: ALBUMIN 2.7 gm/dL (3.5-5.0); BILIRUBIN,TOTAL 0.5 mg/dL (0.0-1.0); CALCIUM 7.9 mg/dL (8.4-10.2); CREATININE, serum 1.05 (0.66-1.25); MAGNESIUM 2.2 mg/dL (1.6-2.3); POTASSIUM 3.1 mmol/L (3.4-5.0); TOTAL PROTEIN 4.7 gm/dL (6.4-8.2)
[2021-03-29 06:36] LABS: HEMATOCRIT 24.3 % (42.0-52.0); MEAN CORPUSCULAR HEMOGLOBIN 28 pg (27.0-31.0)
[2021-03-29 06:38] LABS: PROTHROMBIN TIME 10.8 SECONDS (9.7-12.8)
--- NOTE | 2021-03-29 06:55 | NUR ---
Left for EGD at this time.
--- NOTE | 2021-03-29 07:00 | NUR ---
RECEIVED REPORT FROM SUMEET POLK. PT TO EGD AT 0655. VSS WERE STABLE AND NOTED PT WAS ON RA WHEN HE LEFT. FC PATENT AND DRAINING TO GRAVITY.
--- NOTE | 2021-03-29 07:14 | NUR ---
Patient was changed to blood sugars and insulin administration Q4HR. Patient had 3 black tarry stools throughout night. Otherwise uneventful night. Resting in bed this AM. Call light in reach.
--- NOTE | 2021-03-29 07:28 | NUR ---
Report given to Ольга FAY
--- NOTE | 2021-03-29 07:40 | NUR ---
BACK PT FROM EGD. REPORT RECEIVED FROM SUMEET ESTRADA. PT NEEDS X2 ASSIST TO GET BACK IN BED HE IS VERY WEAK AND ALEJANDRA HIS KNEES. PLACED BACK ON BEDSIDE COTNINUOUS MONITOR. VSS. DIET RESUMED PER DR DURÁN.
--- NOTE | 2021-03-29 09:12 | NUR ---
Initial visit; Patient thanked Safety Tech for visiting him offering God's blessings and keeping him in Safety Tech's prayers.
--- NOTE | 2021-03-29 09:30 | NUR ---
SPOKE TO DR MONGE ABOUT EGD RESULTS, MRI AND EEG NOT PERFORMED YET PHYSICIAN STATES HE IS OK WITH THAT SINCE PT'S NEURO STATUS HAS IMPROVED. NOTIFIED DR MONGE OF K 3.1. NEW ORDERS RECEIVED.
--- NOTE | 2021-03-29 10:43 | NUR ---
REPORT GIVEN TO SUMEET ENCISO ON MEDICAL. PT TO TRANSFER TO [facility] VIA ON RA. ALL PERSONAL BELONGINGS SENT WITH PT. PT REMAINS IN POLICE CUTSODY. TELE BOX IN PLACE.
--- NOTE | 2021-03-29 15:30 | NUR ---
pt taken down for mri
--- NOTE | 2021-03-29 16:22 | NUR ---
Nailhead Puncher attended clinical rounds with the team. Patient to be transferred to the floor. RNMelissa advised that a captain at [facility] had inquired about placement for patient. ELIJAH contacted Sgt Rojo at [facility] and advised that due to patient's history, SW would not be able to find placement in a nursing facility. ELIJAH advised that when patient is ready to be released from skilled nursing, it may be beneficial to have a screening from [facility] for placement. Sgt Rojo verbalized understanding and advised that patient has court on 04/09. ELIJAH also contacted Saolmón, Institutional Custodian at [facility] to gather more background information on patient. ELIJAH will continue to follow. Discharge Plan: Return to [facility]
--- NOTE | 2021-03-29 17:36 | NUR ---
PT HAD MRI AND EGD SCHEDULED, WILL GET EEG TOMORROW AM, PT PLEASANT, LIME, PT EATING DINNER AND INSULIN GIVEN, NO OTHER NEEDS.
--- NOTE | 2021-03-29 23:00 | NUR ---
Patient laying in bed upon enter the room. Patient alert and oriented but hard of hearing. Patient denies any pain or discomfort. Denies SOB, dyspnea, N/V, or dizziness. Assisted patient to the bed-side commode. Small amount of black tarry stool noted. Patient refused dinner. Patient states not feeling hungry. All scheduled meds given per JAN. Call light within reach. Patient denies any needs at this time.
[2021-03-30] VITALS (9 sets, daily range): BP systolic 116–150; BP diastolic 69–94; PULSE 64–103; TEMP 97.4–98.3
--- NOTE | 2021-03-30 04:08 | NUR ---
MONI Perez notified of low blood sugar of 19. This nurse requesting to push entire AMP of D50. Phone order received and read back to push 25gm/50mls of D50 now.
--- NOTE | 2021-03-30 04:33 | NUR ---
Patient was very agitated around 23:30 pm. Yelling at staff and trying to sit on the floor to urinate. PRN Ativan given at 23:40 pm for agitation. Patient fell asleep afterwards. Notified by nurse aide that BS check was 18 at 0400. VS stable. Patient very drowsy and lethargic. Dextrose 25g IV pushed via central line by SUMEET Sweeney. Patient awake with verbal and tactile stimulation. Patient appears confused. Patient became fully awake and alert after 5 minutes of Dextrose IV push. BS recheck was 185 at 04:20 am. Patient had black tarry stools x3 last night. Call light within reach. Will continue to monitor.
--- NOTE | 2021-03-30 06:40 | NUR ---
in bed with covers over his head, bedside shift report received from SUMEET Capps
--- NOTE | 2021-03-30 07:19 | NUR ---
Called Ana MONTENEGRO last night around 23:30 pm regarding patient had agitation. Per MONI Perez, to give PRN Ativan for agitation. PRN Ativan given at 23:40 pm. BS recheck at 05:30 am is 91. D5 1/2 NS running via left femoral central line per JAN. Patient resting in bed. No acute distress noted at this time. Gave report to day shift RN.
[2021-03-30 07:33] LABS: CALCIUM 7.5 mg/dL (8.4-10.2); CREATININE, serum 1.67 (0.66-1.25); MAGNESIUM 1.9 mg/dL (1.6-2.3)
[2021-03-30 07:35] LABS: BASO % 0.2 % (0.0-2.0); EOS % 0.4 % (0-4.0); GRAN # 6.7 (1.4-6.5); GRAN % 79.1 % (42.2-75.2); LYMPH # 0.7 (1.2-3.4); LYMPH % 7.9 % (20.0-51.0); MEAN CELL VOLUME 87 fl (80.0-100.0); MEAN CORPUSCULAR HGB CONC 32 g/dl (33.0-37.0); MEAN PLATELET VOLUME 10.9 fl (7.4-10.4); MONO % 11.9 % (1.7-9.3); PLATELET COUNT 184 K/mm3 (130-400); REDCELL DISTRIBUTION WIDTH-CV 17.6 % (11.5-14.5)
[2021-03-30 07:42] LABS: POTASSIUM 2.9 mmol/L (3.4-5.0)
[2021-03-30 07:47] LABS: HEMATOCRIT 21.8 % (42.0-52.0); MEAN CORPUSCULAR HEMOGLOBIN 28 pg (27.0-31.0)
--- NOTE | 2021-03-30 08:10 | NUR ---
Dr Stone notified of consult, patient was placed NPO at this time, alerted officer with the patient
--- NOTE | 2021-03-30 08:30 | NUR ---
awakened patient and assisted him with taking part of his am meds, he is alert and cooperative, IV potassium started, he has been incontinent and care and am hygiene provided, central line dressing to left groin is loose and dressing change completed, cardiopulmonary in to complete EEG
--- NOTE | 2021-03-30 09:40 | NUR ---
Studio Potter spoke with Salomón, [employer] University Registrar at [facility] who advised patient was a resident there from 10/13/20-02/02/21. Salomón reports patient was admitted from home as his primary care physician thought he needed more assistance.
--- NOTE | 2021-03-30 10:15 | NUR ---
patient scheduled for KARIME, asset availability leader nurse here to take patient for procedure, IV fluids stopped and 1/2 hs started, consent signed, to procedure per bed
--- NOTE | 2021-03-30 11:01 | NUR ---
remains off unit for procedure
--- NOTE | 2021-03-30 11:35 | NUR ---
returned from KARIME per bed, is awake and alert, IV fluids all restarted, he denies needs at this time,
--- NOTE | 2021-03-30 12:00 | NUR ---
provided hearing aid battery and is now able to hear better, denies needs
--- NOTE | 2021-03-30 12:30 | NUR ---
sitting up in bed writing in a notebook, denies needs
--- NOTE | 2021-03-30 13:15 | NUR ---
had lunch and tolerated well, in bed now looking at TV
--- NOTE | 2021-03-30 14:33 | NUR ---
patient has been incontinent of large amount loose dark brown stool and urine, care provided, he could not answer as to why he didn't call when he needed to go to the bathroom, encouraged to use call light if he needs to have a bowel movement or void,
--- NOTE | 2021-03-30 15:45 | NUR ---
officer in the room with patient called stating patient needed some assistance, patient is sitting up on side of bed stating he needs to go into the bathroom and take a shower, DEPUTY DIRECTOR OF NURSING in to assist and with 2 assist he ambulated to the bathroom and into the shower,
--- NOTE | 2021-03-30 16:15 | NUR ---
after shower assisted back to bed, central line dressing moist and removed and new dressing placed, speech therapy in to see carlos alberto
[2021-03-30 16:51] LABS: MEAN CELL VOLUME 88 fl (80.0-100.0); MEAN CORPUSCULAR HGB CONC 31 g/dl (33.0-37.0); MEAN PLATELET VOLUME 11.6 fl (7.4-10.4); PLATELET COUNT 102 K/mm3 (130-400); RED BLOOD COUNT 2.94 M/mm3 (4.20-5.60)
[2021-03-30 16:55] LABS: MEAN CORPUSCULAR HEMOGLOBIN 27 pg (27.0-31.0)
--- NOTE | 2021-03-30 17:06 | NUR ---
asking to get up to bathroom, ambulated to bathroom with 2 assist, had been incontinent of small amount brown stool, IV fluids stopped
--- NOTE | 2021-03-30 17:57 | NUR ---
#14 Niuean coude tip catheter inserted under sterile technique, tolerated procedure well, clear yellow urine returned
--- NOTE | 2021-03-30 18:26 | NUR ---
anderson cath emptied and 950ml urine returned from when catheter placed
--- NOTE | 2021-03-30 18:48 | NUR ---
bedside shift report given to SUMEET Ramirez
--- NOTE | 2021-03-30 18:50 | NUR ---
Received report from Kassy. Patient in bed, asleep. occupational medicine officer at bedside.
--- NOTE | 2021-03-30 20:00 | NUR ---
Patient awake. Flushed his central line on left femoral, backflow noted. He denies pain. Carranza catheter draining clear, yellow urine. Bed alarm on. Lungs are clear. Noted to have some frequent movements on his legs.
[2021-03-31] VITALS (7 sets, daily range): BP systolic 114–140; BP diastolic 70–98; PULSE 86–130; TEMP 97.7–98.6
--- NOTE | 2021-03-31 06:22 | NUR ---
Patient had uneventful night. He asked for Lorazepam at around 0415H. He said he is a bit anxious and cannot sleep. Called Ana MONTENEGRO and she ordered one time dose of Lorazepam.
[2021-03-31 07:04] LABS: MEAN CELL VOLUME 87 fl (80.0-100.0); MEAN CORPUSCULAR HGB CONC 31 g/dl (33.0-37.0); RED BLOOD COUNT 2.75 M/mm3 (4.20-5.60); REDCELL DISTRIBUTION WIDTH-CV 17.8 % (11.5-14.5)
[2021-03-31 07:10] LABS: HEMATOCRIT 23.9 % (42.0-52.0); HEMOGLOBIN 7.4 g/dl (13.5-18.0); MEAN CORPUSCULAR HEMOGLOBIN 27 pg (27.0-31.0)
[2021-03-31 07:11] LABS: PLATELET COUNT 202 K/mm3 (130-400)
[2021-03-31 07:19] LABS: CREATININE, serum 1.66 (0.66-1.25); MAGNESIUM 1.8 mg/dL (1.6-2.3); POTASSIUM 4.2 mmol/L (3.4-5.0)
--- NOTE | 2021-03-31 09:00 | NUR ---
PT SLEEPING UPON ENTRY, ATTEMPTED TO CLEAN UP PT ROOM, PT MEDICATIONS GIVEN, ASSESSMENT PERFORMED, BREAKFAST REHEATED FOR PT, INSULIN ADMINISTERED, NO OTHER NEEDS AT THIS TIME.
[2021-03-31] MEDS ORDERED: VENTOLIN0.09 MG IH (09:07)
[2021-03-31] MEDS ORDERED: PRIL40 PO (09:08)
[2021-03-31] MEDS ORDERED: KEPPRA 500MG500 MG PO (09:19)
[2021-03-31] MEDS ORDERED: AMOXICILLIN 8751 TAB PO (09:22)
[2021-03-31] MEDS ORDERED: ELIQUIS 2.5 PO (09:31)
--- NOTE | 2021-03-31 16:00 | NUR ---
CALLED IN REPORT TO HINA FAY AT THE [facility]ARE HOME.
--- NOTE | 2021-03-31 16:50 | NUR ---
Pt's call light ringing, this RN answers call. Pt is angry, officer at bedside states that the pt had attempted to throw box of green wipes across room. He removed them from the pt's reach. When I ask the pt why he needed the wipes he becomes angry and agitated, throws paper at me. This RN goes to desk to find pt's nurse, police shift commander still at bedside. Pt in bed at time of leaving room.
--- NOTE | 2021-03-31 17:06 | NUR ---
PASSING BY PT ROOM AND HEARD A LOUD NOISE AND PT PULLING ON DOOR WHILE ON HIS KNEES. ORCHARD HAND REPORTS THAT PT SLID OUT OF BED ONTO HANDS AND KNEES AND CRAWLED TO THE DOOR AFTER THROWING HIS WATER CUP AT THE DOOR. ORCHARD HAND DENIES PT HITTING HEAD, VITALS TAKEN AND STABLE. PT ASSISTED BACK TO BED WITH GAIT BELT. JAMMIE MONTENEGRO CALLED TO NOTIFY OF FALL. NO OTHER NEEDS. still plan to discharge.
--- NOTE | 2021-03-31 17:52 | NUR ---
CENTRAL LINE DISCONTINUED, PRESSURE HELD FOR 10 MINUTES, PT NOT BLEEDING AFTER REMOVING GAUZE TO ASSESS SITE. GAUZE AND TEGADERM APPLIED. NO OTHER NEEDS.
--- NOTE | 2021-03-31 17:54 | NUR ---
PT ESCORTED OUT VIA WHEELCHAIR WITH CRYOGENICS REPAIRER ESCORTS AND PT PAPERWORK.
== END 2021-03-31 18:00 | DRG 871 ==
LOC: COL.ER 08:10 → ICU 10:06 → MEDICAL 03-29 12:56
PROVIDERS: Emergency Medicine; Family Medicine; Internal Medicine Pulmonary Disease; Physician Assistant; ADMIT Internal Medicine
PROC: 02HV33Z Insertion of Infusion Device into Superior Vena Cava, Percutaneous Approach (ICD-10-PCS; principal; 2021-03-27)
PROC: 5A1D70Z Performance of Urinary Filtration, Intermittent, Less than 6 Hours Per Day (ICD-10-PCS; 2021-03-27)
DX: A41.9 Sepsis, unspecified organism (principal); E11.10 Type 2 diabetes mellitus with ketoacidosis without coma; G93.41 Metabolic encephalopathy; J96.01 Acute respiratory failure with hypoxia; N18.6 End stage renal disease; K20.91 Esophagitis, unspecified with bleeding; J18.9 Pneumonia, unspecified organism; I63.89 Other cerebral infarction; J90 Pleural effusion, not elsewhere classified; I12.0 Hypertensive chronic kidney disease with stage 5 chronic kidney disease or end stage renal disease; Z94.0 Kidney transplant status; Q87.81 Alport syndrome; R65.20 Severe sepsis without septic shock; G20 Parkinson's disease; E83.42 Hypomagnesemia; E87.5 Hyperkalemia; E87.6 Hypokalemia; G40.909 Epilepsy, unspecified, not intractable, without status epilepticus; E11.22 Type 2 diabetes mellitus with diabetic chronic kidney disease; E11.65 Type 2 diabetes mellitus with hyperglycemia; E11.649 Type 2 diabetes mellitus with hypoglycemia without coma; F02.80 Dementia in other diseases classified elsewhere, unspecified severity, without behavioral disturbance, psychotic disturbance, mood disturbance, and anxiety; Z66 Do not resuscitate; Z87.891 Personal history of nicotine dependence; R33.9 Retention of urine, unspecified; H91.90 Unspecified hearing loss, unspecified ear
CPT/HCPCS: 99232-AI; 99233-AI; 99239; A4314; C9113; J0610; J0690; J0696; J1720; J1815; J1953; J2060; J2405; J2543; J2704; J3475; J3480; J7030; J7120; J7515; J7517; P9016

== ENCOUNTER 2021-04-06 10:24 | Emergency (ER) | payer OTHER ==
[~2021-04-06] VITALS: Ht 152.4 cm; Wt 40.9 kg
[~2021-04-06 10:24] MED LIST changes: +AMOXICILLIN 8751 TAB PO; +ELIQUIS 2.5 PO; +FERROUS SU325 MG/TAB PO; +HALDOL .5M0.5 MG/TAB PO; +IMODIUM 2MG CAPS2 MG PO; +KEPPRA 500MG500 MG PO; +PRIL40 PO; +SENEXON-S 50-81 EACH PO; +VENTOLIN0.09 MG IH
[2021-04-06 10:27] VITALS: TEMP 97.9
[2021-04-06 11:22] LABS: BASO % 0.5 % (0.0-2.0); EOS # 0.1 (0.0-0.7); EOS % 1.5 % (0-4.0); LYMPH # 0.8 (1.2-3.4); LYMPH % 13.6 % (20.0-51.0); MEAN CELL VOLUME 88 fl (80.0-100.0); MEAN CORPUSCULAR HGB CONC 31 g/dl (33.0-37.0); MEAN PLATELET VOLUME 10.5 fl (7.4-10.4); MONO # 0.6 (0.1-0.6); MONO % 10.9 % (1.7-9.3); PLATELET COUNT 315 K/mm3 (130-400); RED BLOOD COUNT 3.28 M/mm3 (4.20-5.60); REDCELL DISTRIBUTION WIDTH-CV 16.9 % (11.5-14.5)
[2021-04-06 11:25] LABS: ALBUMIN 3.4 gm/dL (3.5-5.0); BILIRUBIN,TOTAL 0.3 mg/dL (0.0-1.0); CALCIUM 8.9 mg/dL (8.4-10.2); CREATININE, serum 1.07 (0.66-1.25); POTASSIUM 3.8 mmol/L (3.4-5.0)
[2021-04-06 11:43] LABS: HEMATOCRIT 28.8 % (42.0-52.0); MEAN CORPUSCULAR HEMOGLOBIN 27 pg (27.0-31.0)
[2021-04-06 12:26] VITALS: BP 148/98; PULSE 66
== END 2021-04-06 12:26 | disposition home or self-care (01) ==
LOC: COL.ER 10:24
PROVIDERS: Emergency Medicine
DX: E11.65 Type 2 diabetes mellitus with hyperglycemia (principal); G20 Parkinson's disease; E11.22 Type 2 diabetes mellitus with diabetic chronic kidney disease; I12.9 Hypertensive chronic kidney disease with stage 1 through stage 4 chronic kidney disease, or unspecified chronic kidney disease; N18.9 Chronic kidney disease, unspecified; N40.0 Benign prostatic hyperplasia without lower urinary tract symptoms; Z79.4 Long term (current) use of insulin; Z79.01 Long term (current) use of anticoagulants; Z79.899 Other long term (current) drug therapy
CPT/HCPCS: J7030

== ENCOUNTER 2021-06-25 09:46 | Day surgery (SDC) | payer MEDICARE, MEDICAID ==
[~2021-06-25] VITALS: Ht 147.3 cm; Wt 42.7 kg
[2021-06-25 11:35] VITALS: BP 113/69; PULSE 69; TEMP 98.4
[2021-06-25] MEDS ORDERED: FLOMAX 0.40.4 MG/CAP (12:05)
[2021-06-25] MEDS ORDERED: ZOLOFT 100MG100 MG PO (12:05)
[2021-06-25] MEDS ORDERED: RESTORIL 1515 MG/CAP PO (12:06)
[2021-06-25] MEDS ORDERED: TUMS500 MG (12:11)
[2021-06-25] MEDS ORDERED: TYLENOL 500MG500 MG PO (12:12)
[2021-06-25] MEDS ORDERED: INFANTS AQU400 IU/ML PO (12:18)
[2021-06-25] MEDS ORDERED: RYTARY1 CER PO (12:20)
[2021-06-25] MEDS ORDERED: REQUIP 1MG T1 MG/TAB PO (12:21)
[2021-06-25] MEDS ORDERED: PRIL40 PO (12:21)
[2021-06-25] MEDS ORDERED: NOVOLIN N100 UNIT/1 SQ (12:22)
[2021-06-25] MEDS ORDERED: MYLANTA MAXIMU355 M1 PO (12:23)
[2021-06-25] MEDS ORDERED: MILK OF MA400 MG/52 (12:26)
[2021-06-25] MEDS ORDERED: MIRALAX PA17 GM/Dose PO (12:27)
[2021-06-25] MEDS ORDERED: PRINIVIL10 MG PO (12:27)
[2021-06-25] MEDS ORDERED: SYNTHROID 0.0.025 MG PO (12:28)
[2021-06-25] MEDS ORDERED: IMODIUM 2MG CAPS2 MG PO (12:29)
[2021-06-25] MEDS ORDERED: HALDOL .5M0.5 MG/TAB PO (12:30)
[2021-06-25] MEDS ORDERED: DULCOLAX S10 MG/SUPP RC (12:31)
[2021-06-25] MEDS ORDERED: ARICEPT10 MG PO (12:31)
[2021-06-25] MEDS ORDERED: CYCLOSPORINE25 M2 ×2 (12:33→12:34)
[2021-06-25] MEDS ORDERED: CELLCEPT 5500 MG/TAB PO (12:34)
[2021-06-25] MEDS ORDERED: BASAGLAR K100 UNIT/1 SQ (12:35)
[2021-06-25] MEDS ORDERED: ARTIFICIAL TEAR15 M7 OP (12:36)
[2021-06-25 13:20] VITALS: BP 113/77; PULSE 63; TEMP 97.9
--- NOTE | 2021-06-25 13:20 | NUR ---
Pt returns to [facility] from [facility]oscopy, pt remains on stretcher because of weak gait and wheelchair dependent. Pt awake and alert, VSS. Call light in reach.
[2021-06-25 13:35] VITALS: BP 121/97; PULSE 77
--- NOTE | 2021-06-25 13:35 | NUR ---
Pt given a muffin, pudding, and sprite and doing well, reports blood sugar feels normal. VSS. Call light in reach.
[2021-06-25 13:50] VITALS: BP 112/86; PULSE 73
--- NOTE | 2021-06-25 14:05 | NUR ---
Discharge instructions given to pt and verbalized understanding, Simran with [facility] notified and will meet us in [address]. IV discontinued to left hand. Pt dressed and moves to wheelchair with assistance and is taken to van and left in care of Simran.
== END 2021-06-25 14:05 | disposition home or self-care (01) ==
LOC: SDCO 09:46
DX: K29.70 Gastritis, unspecified, without bleeding (principal); K22.10 Ulcer of esophagus without bleeding; K44.9 Diaphragmatic hernia without obstruction or gangrene; Q87.81 Alport syndrome; T86.19 Other complication of kidney transplant; N18.9 Chronic kidney disease, unspecified; D84.9 Immunodeficiency, unspecified; E11.22 Type 2 diabetes mellitus with diabetic chronic kidney disease; D63.1 Anemia in chronic kidney disease; G20 Parkinson's disease; I13.10 Hypertensive heart and chronic kidney disease without heart failure, with stage 1 through stage 4 chronic kidney disease, or unspecified chronic kidney disease; E03.9 Hypothyroidism, unspecified; F32.9 Major depressive disorder, single episode, unspecified; F03.90 Unspecified dementia, unspecified severity, without behavioral disturbance, psychotic disturbance, mood disturbance, and anxiety; Z87.891 Personal history of nicotine dependence; Z87.81 Personal history of (healed) traumatic fracture; Z79.4 Long term (current) use of insulin; Z79.899 Other long term (current) drug therapy; Z20.822 Contact with and (suspected) exposure to COVID-19; Z13.810 Encounter for screening for upper gastrointestinal disorder; Z79.82 Long term (current) use of aspirin; Z79.890 Hormone replacement therapy; Z82.3 Family history of stroke; Z80.9 Family history of malignant neoplasm, unspecified
CPT/HCPCS: J2704; J7030